=== PATIENT | male | born 1945 | race Caucasian/White ===

== ENCOUNTER 2018-09-07 07:14 | Inpatient (IN) | payer MEDICARE ==
[2018-09-07] VITALS (20 sets, daily range): BP systolic 129–144; BP diastolic 69–87; BMI 28.5
--- NOTE | 2018-09-07 07:33 | NUR ---
PT INTUBATED BY DR. VILLEDA WITH RT X 2 ET RN X 3 AT BEDSIDE. 7.5 ETT TUBE 24 AT LIP. BREATH SOUNDS AUSCULTATED ON R SIDE. UPPER L LUNG SOUNDS AUSCULTATED. L BASE NOT ABLE TO AUSCULTATE.
[2018-09-07 07:51] LABS: BASOPHILS 0.1 % (0-2); EOSINOPHILS 0.5 % (0-7); HEMATOCRIT 37.5 % (42.0-54.0); HEMOGLOBIN 12.4 g/dL (13.5-17.5); IMMATURE GRANULOCYTES 0.2 % (0-5); LYMPHOCYTES 8.2 % (15-50); MCH 30.8 pg (26.0-34.0); MCHC 33.1 g/dL (31.0-37.0); MCV 93.1 fL (80.0-100.0); MONOCYTES 4.9 % (2-11); NEUTROPHILS 86.1 % (40-80); PLATELET COUNT 201 10x3/uL (130-400); RBC 4.03 10x6/uL (4.20-6.10); WBC 10.5 10x3/uL (4.8-10.8)
[2018-09-07 08:15] LABS: INR 1.38 (0.85-1.17); PROTIME 16.4 SECONDS (11.6-15.0)
[2018-09-07 08:18] LABS: ALBUMIN 3.8 g/dL (3.4-5.0); ALKALINE PHOSPHATASE 37 U/L (46-116); ALT (SGPT) 30 U/L (10-68); BILIRUBIN - TOTAL 2.22 mg/dL (0.2-1.3); CALC OSMOLALITY 298 mosm/kg (275-300); CALCIUM 8.6 mg/dL (8.5-10.1); CARBON DIOXIDE 27.6 mmol/L (21.0-32.0); CHLORIDE - SERUM 108 mmol/L (98-107); CREATININE - SERUM 1.5 mg/dL (0.6-1.3); GLUCOSE 166 mg/dL (74-106); POTASSIUM - SERUM 3.9 mmol/L (3.5-5.1); PROTEIN - SERUM 7.1 g/dL (6.4-8.2); SODIUM 145 mmol/L (136-145); UREA NITROGEN 29 mg/dL (7-18); eGFR NON AFRICAN AMERICAN 49 mL/min (90-120)
[2018-09-07 08:25] LABS: CKMB 1.9 U/L (0.0-3.6); CREATINE KINASE 126 UL (21-232); MAGNESIUM - SERUM 2.1 mg/dL (1.8-2.4); THYROID STIMULATING HORMONE 1.49 uIU/mL (0.36-3.74); TROPONIN-I 0.023 ng/mL (0.000-0.060)
--- NOTE | 2018-09-07 12:10 | NUR ---
PT ARRIVED ON UNIT VIA STRETCHER, PT ON VENT, HOOKED TO MONITORS, OGT TO LIWS WITH GREEN DRAINAGE NOTED, ALL PPP, VSS, CALL LIGHT IN REACH
[2018-09-07] MEDS ORDERED: COREG25 MG PO (12:56)
[2018-09-07] MEDS ORDERED: CATAPRES0.1 MG PO (12:56)
[2018-09-07] MEDS ORDERED: ENTRESTO 49 MG1 EACH PO (12:57)
[2018-09-07] MEDS ORDERED: HYDRALAZINE HCL50 MG PO (12:58)
[2018-09-07] MEDS ORDERED: LASIX80 MG PO (12:59)
[2018-09-07] MEDS ORDERED: K-TAB10 MEQ PO (12:59)
[2018-09-07] MEDS ORDERED: ELIQUIS5 MG PO (13:00)
[2018-09-07 14:16] LABS: % SATURATION 28 % (15-55); IRON 86 ug/dl (35-150); TOTAL IRON BIND CAPACITY 302 ug/dl (260-445); UNSAT IRON BIND CAPACITY 216 ug/dl (150-375)
--- NOTE | 2018-09-07 15:00 | NUR ---
REASSESSMENT COMPLETE, NO CHANGES NOTED, WILL CON'T TO MONITOR
[2018-09-07 16:26] LABS: APPEARANCE CLEAR (CLEAR); BILIRUBIN NEGATIVE (NEGATIVE); COLOR YELLOW (YELLOW); GLUCOSE NEGATIVE (NEGATIVE); KETONE NEGATIVE (NEGATIVE); NITRITE NEGATIVE (NEGATIVE); PROTEIN NEGATIVE (NEGATIVE); UROBILINOGEN NORMAL (NORMAL)
[2018-09-07 16:34] LABS: WHITE CELLS - URINE 0-5 /hpf (0-5)
--- NOTE | 2018-09-07 17:00 | NUR ---
DR. GORDON AT BEDSIDE, NEW ORDERS RECIEVED,
--- NOTE | 2018-09-07 19:00 | NUR ---
SHIFT ASSESSMENT COMPLETE. PT SEDATED ON VENT. R PUPIL 2 MM, SLUGGISH REACTION TO LIGHT. L PUPIL 1 MM, FIXED. ETT/OGT SECURED. ETT SIZE 7.5, 25 CM LIP. VENT SETTINGS: A/C RATE 22, TIDAL VOLUME 440, FIO2 60%, PEEP 5.0, O2 SAT 96%. OGT LIS, GREEN/BROWN BILE NOTED IN COLLECTION CHAMBER. S1S2 AUDIBLE, HR 70 BPM, PACEMAKER NOTED L UPPER CHEST, NSR SHOWING ON MONITOR. CRACKLES HEARD BILAT THROUGHOUT ALL LOBES. ABD FLAT AND SOFT, BS ACTIVE X4. L AC PIV S/L. R AC PIV INFUSING NS @ 125 ML/HR AND PROPOFOL @ 40 MCG/KG/MIN. HE IS SEDATED AND DOES NOT RESPOND TO SPEECH. HE DOES MOVE HIS R ARM AT TIMES, L SIDE IS FLACCID. RADIAL AND PEDAL PULSES PALP. PINEDA CATH INTACT DRAINING CONCENTRATED URINE. SCDS ON AND FUNCTIONING. VSS. ORAL CARE PROVIDED VIA RT. PT'S HEAD IS STRAIGHT. WILL ONLY REPOSITION SLIGHTLY PER DR. GORDON'S NOTE. SOFT WRIST RESTRAINTS IN PLACE, SKIN WNL. WILL CONT CLOSE MONITORING IN ICU.
--- NOTE | 2018-09-07 21:00 | NUR ---
ORAL CARE PROVIDED. REPOSITIONED FOR COMFORT. NO CHANGES IN NEURO ASSESSMENT. PT REMAINS SEDATED ON VENT. VSS.
--- NOTE | 2018-09-07 21:10 | NUR ---
DECREASED IVF PER DR. GORDON'S NOTE.
--- NOTE | 2018-09-07 23:00 | NUR ---
REASSESSMENT COMPLETE. NO CHANGES IN PT CONDITION. SLIGHTLY REPOSITIONED PT, HEAD REAMINS STRAIGHT. R PUPIL 2 MM SLUGGISH, L 1 AND FIXED. NO SIGNS OF MOVEMENT FROM HIS L SIDE. VSS. WILL CONT WITH POC.
[2018-09-08] VITALS (26 sets, daily range): BP systolic 126–146; BP diastolic 74–91; BMI 28.4
--- NOTE | 2018-09-08 01:00 | NUR ---
ORAL CARE PROVIDED VIA RT. PROPOFOL TUBING CHANGED.
--- NOTE | 2018-09-08 03:00 | NUR ---
REASSESSMENT COMPLETE. NO CHANGES IN PT CONDITION. SLIGHTLY REPOSITIONED, HEAD REMAINS STRAIGHT. ORAL CARE PROVIDED. VSS. WILL CONT WITH POC.
[2018-09-08 04:29] LABS: BASOPHILS 0 % (0-2); EOSINOPHILS 0.1 % (0-7); HEMATOCRIT 36.5 % (42.0-54.0); HEMOGLOBIN 11.9 g/dL (13.5-17.5); IMMATURE GRANULOCYTES 0.2 % (0-5); LYMPHOCYTES 10.3 % (15-50); MCH 30.7 pg (26.0-34.0); MCHC 32.6 g/dL (31.0-37.0); MCV 94.3 fL (80.0-100.0); MEAN PLATELET VOLUME 10.4 fL (7.4-10.4); MONOCYTES 12.4 % (2-11); PLATELET COUNT 193 10x3/uL (130-400); RBC 3.87 10x6/uL (4.20-6.10); RDW 14.6 % (11.5-14.5); WBC 9.1 10x3/uL (4.8-10.8)
[2018-09-08 04:59] LABS: ALBUMIN 3.3 g/dL (3.4-5.0); ANION GAP 15.2 mmol/L (8-16); BILIRUBIN - TOTAL 2.24 mg/dL (0.2-1.3); CALCIUM 8.4 mg/dL (8.5-10.1); CARBON DIOXIDE 25.9 mmol/L (21.0-32.0); CREATININE - SERUM 1.4 mg/dL (0.6-1.3); POTASSIUM - SERUM 3.1 mmol/L (3.5-5.1); PROTEIN - SERUM 6.6 g/dL (6.4-8.2)
--- NOTE | 2018-09-08 05:00 | NUR ---
HR INCREASED FROM 70 TO 91 BPM, SINUS RHYTHM ON MONITOR. WILL CONT CLOSE OBSERVATION IN ICU. ORAL CARE PROVIDED. VSS.
--- NOTE | 2018-09-08 06:00 | NUR ---
LABS REVIEWED. REPLACING K NOW, INFUSING @ 80 ML/HR.
[2018-09-08 13:12] LABS: FOLATE (FOLIC ACID) - SERUM 19.6 ng/mL (>3.0)
--- NOTE | 2018-09-08 13:50 | NUR ---
0700 ON VENT AT 60% 02 ASSESSMENT COMPLETE
--- NOTE | 2018-09-08 13:51 | NUR ---
0900 MINIMALLY REPOSITIONED IN BED PER MD INSTRUCTIONS WITH HOB AT 30 DEGREES ORAL CARE PROVIDED
--- NOTE | 2018-09-08 18:28 | MORECARE ---
CASE MANAGEMENT DISCHARGE SUMMARY PATIENT: ALEXANDER ALBRECHT UNIT: [id number] ADM DATE: 09/07/18 AGE: 73 : 46 SEX: M ROOM/BED: D.2313 AUTHOR: NEGRA ELENA PHYSICIAN: REFERRING PHYSICIAN: TONNY LAURENT MD DATE OF SERVICE: 09/08/18 Discharge Plan Patient Name: ALEXANDER ALBRECHT Facility: [facility]:[place] : 1945 Planned Disposition: Anticipated Discharge Date: Discharge Date: Expected LOS: Initial Reviewer: [email or web address] Initial Review Date: 09/07/2018 Generated: 09/08/18 7:28 pm Comments DCP- Discharge Planning Updated by [email or web address]: Margie Freeman on 09/08/18 4:[address] PATIENT IS CURRENTLY ON VENT AND NO FAMILY AVAILABLE FOR INTAKE ASSESSMENT Patient Name: ALEXANDER ALBRECHT Page [id number] at 1828 All edits/amendments must be made on the electronic document DICTATION DATE: 09/08/181826 MANAGER AVIATION: JOE 09/08/181826 RPT#: [id number] DC DATE: STATUS: ADM IN [facility] [address] [place] [address] END OF REPORT
--- NOTE | 2018-09-08 19:00 | NUR ---
SHIFT ASSESSMENT COMPLETE. PT SEDATED ON VENT. ETT/OGT SECURED, ETT SIZE 7.5, 27 LIP LINE RIGHT. VENT SETTINGS: A/C RATE OF 22, TIDAL VOLUME 450, FIO2 60%, PEEP 5.0, O2 SAT 97%. OGT LIWS, NO BILE NOTED. PUPILS 2 MM, SLUGGISH REACTION TO LIGHT. HE IS ABLE TO LOCALIZE PAIN. ORAL CARE PROVIDED. S1S2 AUDIBLE, HR 70 BPM, NSR SHOWING ON MONITOR. CRACKLES HEARD BILAT THROUGHOUT ALL LOBES. ABD SOFT AND NONTENDER TO TOUCH, HYPOACTIVE BS X4. PINEDA CATH INTACT DRAINING CONCENTRATED URINE WITH A SCANT AMOUNT OF BLOOD NOTED IN THE TUBING. L AC PIV INFUSING PROPOFOL @ 40 MCG/KG/SD. R AC PIV INFUSING NS @ KVO. RADIAL AND PEDAL PULSES PALP. SCDS ON AND FUNCTIONING. HEEL PROTECTORS ON. TIGHT PARAMETERS SET ON ICU MONITORS. WILL CONT WITH POC.
--- NOTE | 2018-09-08 19:24 | NUR ---
1100 CONTINUED Q 1 HOUR NEURO CHECKS AND VENT SETTINGS
--- NOTE | 2018-09-08 19:26 | NUR ---
1300 DR SANCHEZ AT BEDSIDE ASSESSING PATIENT. WILL CONTINUE TO MONITOR AND MAINTAIN STABILITY FOR SEVERAL DAYS
--- NOTE | 2018-09-08 19:28 | NUR ---
1500 CHILDREN OF HIS BEST FRIEND VISITING EMOTIONAL SUPPORT PROVIDED
--- NOTE | 2018-09-08 19:29 | NUR ---
1700 NO CHANGES TO CARE
--- NOTE | 2018-09-08 21:00 | NUR ---
REPOSITIONED FOR COMFORT, ORAL CARE PROVIDED. VSS. NO CHANGES IN PT CONDITION. NEURO CHECKS Q1H. NO FAMILY AT VISITATION. HOB ELEVATED 30 DEGREES, HEAD IS STRAIGHT. WILL CONT WITH POC.
--- NOTE | 2018-09-08 22:29 | NUR ---
K 3.5, ELECTROLYTE PROTOCOL INITATED.
--- NOTE | 2018-09-08 22:31 | NUR ---
TYLENOL SUPP ADMIN, TEMP 101.1. WILL CONT TO MONITOR CLOSELY.
--- NOTE | 2018-09-08 23:00 | NUR ---
REASSESSMENT COMPLETE. PT'S TEMP 99.9. S1S2 AUDIBLE, HR 70 NSR SHOWING ON MONITOR. PACEMAKER IN L UPPER CHEST. CRACKLES HEARD BILAT THROUGHOUT ALL LOBES. NO CHANGES IN PT'S NEURO ASSESSMENT. HOB ELEVATED 30 DEGREES. ORAL CARE PROVIDED. WILL CONT WITH POC.
--- NOTE | 2018-09-08 23:49 | NUR ---
PROPOFOL TUBING CHANGED, SWAB CAPPED, LABELED.
[2018-09-09] VITALS (24 sets, daily range): BP systolic 130–153; BP diastolic 81–97
--- NOTE | 2018-09-09 01:00 | NUR ---
MINIMALLY REPOSITIONED. PINEDA CARE PROVIDED. ORAL CARE PROVIDED. VSS. WILL CONT WITH POC.
--- NOTE | 2018-09-09 03:00 | NUR ---
REASSESSMENT COMPLETE. PT IS IN COUGHING SPELL, CLEAR/WHITE SECRETIONS SUCTIONED. PT IS NOW CALM AND SEDATED. NO NEURO CHANGES NOTED. EYES ARE EDEMATOUS, PUPILS 2 MM, SLUGGISH REACTION TO LIGHT. TEMP 99.2, FAN ON. WILL CONT CLOSE MONITORING IN ICU.
[2018-09-09 04:13] LABS: BASOPHILS 0.1 % (0-2); EOSINOPHILS 0 % (0-7); HEMATOCRIT 39.6 % (42.0-54.0); HEMOGLOBIN 12.9 g/dL (13.5-17.5); IMMATURE GRANULOCYTES 0.2 % (0-5); LYMPHOCYTES 11.2 % (15-50); MCH 31.3 pg (26.0-34.0); MCHC 32.6 g/dL (31.0-37.0); MCV 96.1 fL (80.0-100.0); MEAN PLATELET VOLUME 10.4 fL (7.4-10.4); MONOCYTES 17.3 % (2-11); NEUTROPHILS 71.2 % (40-80); PLATELET COUNT 162 10x3/uL (130-400); RBC 4.12 10x6/uL (4.20-6.10); RDW 14.7 % (11.5-14.5)
[2018-09-09 04:17] LABS: WBC 13.9 10x3/uL (4.8-10.8)
[2018-09-09 04:27] LABS: CALCIUM 8.6 mg/dL (8.5-10.1); CARBON DIOXIDE 27.1 mmol/L (21.0-32.0); CREATININE - SERUM 1.4 mg/dL (0.6-1.3); MAGNESIUM - SERUM 2.3 mg/dL (1.8-2.4); PHOSPHOROUS 3.8 mg/dL (2.5-4.9)
[2018-09-09 04:29] LABS: POTASSIUM - SERUM 4.1 mmol/L (3.5-5.1)
--- NOTE | 2018-09-09 05:00 | NUR ---
CHG BATH GIVEN. ORAL CARE AND PINEDA CARE PROVIDED. PARTIAL LINEN CHANGE PROVIDED WITH MINIMAL MOVEMENT. VSS. SEDATED ON VENT, PT TOLERATED WELL. WILL CONT WITH POC.
--- NOTE | 2018-09-09 15:24 | NUR ---
NUTRITION F/U RECEIVED CONSULT TO START TUBE FEEDS. ORDERED PULMOCARE WITH GOAL RATE 35 CC/HR. 50 CC H2O FLUSH Q 4 HOURS. DIPRIVAN CURRENTLY @ ~ 20 CC PER HOUR PROVIDING 530 KCAL/DAY. WILL REQUIRE INCREASED TUBE FEED RATE AFTER DIPRIVAN RATE DECREASES. RD FOLLOWING
--- NOTE | 2018-09-09 18:00 | MORECARE ---
CASE MANAGEMENT DISCHARGE SUMMARY PATIENT: ALEXANDER ALBRECHT UNIT: [id number] ADM DATE: 09/07/18 AGE: 73 : 46 SEX: M ROOM/BED: D.2313 AUTHOR: NEGRA ELENA PHYSICIAN: REFERRING PHYSICIAN: TONNY LAURENT MD DATE OF SERVICE: 09/09/18 Discharge Plan Patient Name: ALEXANDER ALBRECHT Facility: [facility]:[place] : 1945 Planned Disposition: Anticipated Discharge Date: Discharge Date: Expected LOS: Initial Reviewer: [id number] Initial Review Date: 09/07/2018 Generated: 09/09/18 7:00 pm Comments DCP- Discharge Planning Updated by [email or web address]: Margie Freeman on 09/09/18 4:[address] PATIENT IS CURRENTLY ON VENT AND NO FAMILY AVAILABLE FOR INTAKE ASSESSMENT. CM HAS NOT BEEN ABLE TO GET INTOUCH WITH CONTACTS. CM WILL CONTINUE TO FOLLOW AND ASSIST NEEDED WITH DISCHARGE PLANNING / NEEDS. DCP- Discharge Planning Updated by [email or web address]: Margie Freeman on 09/08/18 4:[address] PATIENT IS CURRENTLY ON VENT AND NO FAMILY AVAILABLE FOR INTAKE ASSESSMENT Last DP export: 09/08/18 5:28 pm Patient Name: ALXEANDER ALBRECHT Page [id number] at 1800 All edits/amendments must be made on the electronic document DICTATION DATE: 09/09/18 1800 COMPUTER HARDWARE ENGINEER: JOE 09/09/18 1800 RPT#: [id number] DC DATE: STATUS: ADM IN [facility] [address] [place] [address] END OF REPORT
--- NOTE | 2018-09-09 19:00 | NUR ---
RECEIVED PATIENT FROM DAY SHIFT RN, INTUBATED AND SEDATED. NO PURPOSEFUL MOVEMENT NOTED. SEE FLOWSHEET FOR VENT SETTINGS. BEDSIDE INSTRUCTOR TRAINER CANINE SERVICE READING SR-PACED @ 70BPM. SLIGHTLY FEBRILE, TEMP 100.2, FAN TURNED ON. LS COARSE BILAT. RESPIRATIONS EVEN AND UNLABORED. HYPO BS X 4. OGT WITH PULMOCARE AT 15ML/HR , WILL FOLLOW ORDERS FOR TITRATION. PINEDA TO GRAVITY DRAINING BLOODY URIINE, WILL MONITOR OUTPUT. SKIN W/D/I. FAMILY NOT PRESENT AT THIS TIME. WILL MONITOR CLOSELY THROUGH OUT THE NIGHT.
--- NOTE | 2018-09-09 20:06 | NUR ---
0900 MINIMALLY REPOSITIONED IN BED JHR PACING AT 70
--- NOTE | 2018-09-09 20:06 | NUR ---
0700 ORAL CARE PROVIDED ASSESSMENT COMPLETE
--- NOTE | 2018-09-09 20:07 | NUR ---
1300 OGT TO LIS
--- NOTE | 2018-09-09 20:07 | NUR ---
1100 NO CHANGES TO VENT SETTING WHEN DR GORDON MADE ROUNDS
--- NOTE | 2018-09-09 20:08 | NUR ---
1500 STARTED PULMOCARE AT 20ML/ PER HOUR TO OGT
--- NOTE | 2018-09-09 20:11 | NUR ---
1700 RERPOSITIONED IN BED ORAL CARE COMPLETE. NO DISTRESS NOTED
--- NOTE | 2018-09-09 21:00 | NUR ---
PM MEDS GIVEN PER MD ORDERS, SEE MAR.
--- NOTE | 2018-09-09 23:00 | NUR ---
REASSESSMENT COMPLETED, SEE FLOWSHEET. VSS. WILL CTM.
[2018-09-10] VITALS (23 sets, daily range): BP systolic 145–161; BP diastolic 77–109
--- NOTE | 2018-09-10 01:00 | NUR ---
NO ACUTE CHANGES NOTED. VSS. IV TUBING CHANGED PER PROTOCOL. RESIDUALS CHECKED, 20ML. WILL CTM.
--- NOTE | 2018-09-10 03:00 | NUR ---
REASSESSMENT COMPLETED, SEE FLOWSHEET. VSS. LEFT ARM SWOLLEN, IV STOPPED AND PIV CHECKED, FLUSHED, LEAKING NOTED. IV DC'D. NO OTHER ACUTE CHANGES NOTED. WILL CTM.
--- NOTE | 2018-09-10 07:00 | NUR ---
REC'D SEDTED W/PROPOFOL ON VENT, VSS.
--- NOTE | 2018-09-10 08:00 | NUR ---
ASSESSED, PROPOFOL OFF. UNRESPONSIVE EXCEPT COUGH/GAG REFLEX INTACT.
--- NOTE | 2018-09-10 10:00 | NUR ---
REMAINS UNRESPONSVIE OFF PROPOFOL. REPOSITIONED.
--- NOTE | 2018-09-10 11:30 | NUR ---
REASSESSED. AFVSS, REPOSITIONED
--- NOTE | 2018-09-10 13:35 | NUR ---
DR SANCHEZ IN- NO NEW ORDERS
--- NOTE | 2018-09-10 14:54 | NUR ---
REASSESSED, REPOSITIONED, AFVSS.
--- NOTE | 2018-09-10 17:30 | NUR ---
REPOSITIONED, NEURO UNCHANGED.
--- NOTE | 2018-09-10 19:00 | NUR ---
REPORT RECIEVED, SHIFT ASSESSMENT COMPLETE, PLEASE SEE FLOW SHEETS FOR DETAILS. ORAL CARE AND TURNING PROVIDED. RESIDUAL CHECK WITH NONE OUT. INCREASED TF RATE TO 35 ML/HR. PINEDA CARE PROVIDED. VSS ATT. BED LOW AND LOCKED. WILL CONTINUE PLAN OF CARE.
--- NOTE | 2018-09-10 20:58 | NUR ---
ORAL CARE AND TURNING PROVIDED. VSS. BED LOW AND LOCKED. NO S&S DISTRESS TO NOTE. WILL CONTINUE PLAN OF CARE.
--- NOTE | 2018-09-10 23:00 | NUR ---
REASSESSMENT COMPLETE, PLEASE SEE FLOW SHEETS FOR DETAILS. NO ACUTE CHANGES TO NOTE. ORAL CARE AND TURNING PROVIDED. VSS, BED LOW AND LOCKED. WILL CONTINUE PLAN OF CARE.
[2018-09-11] VITALS (24 sets, daily range): BP systolic 134–160; BP diastolic 65–100
--- NOTE | 2018-09-11 00:55 | NUR ---
ORAL CARE AND TURNING PROVIDED. VSS, BED LOW AND LOCKED. WILL CONTINUE PLAN OF CARE.
--- NOTE | 2018-09-11 04:16 | NUR ---
FULL CHLORHEXADINE BED BATH AND LINEN CHANGE PROVIDED. PINEDA CARE PROVIDED. TOLERATED WELL. ORAL CARE AND TURNING PROVIDED. VSS, WILL CONTINUE PLAN OF CARE.
--- NOTE | 2018-09-11 06:00 | NUR ---
ORAL CARE AND TURNING PROVIDED. VSS, BED LOW AND LOCKED. WILL CONTINUE PLAN OF CARE.
--- NOTE | 2018-09-11 07:45 | NUR ---
ASSESSED, OPENS EYES WHEN REPOSITIONED/SXD, WD RUE AND WILL MOVE RT ARM AGAINST GRAVITY WHEN NAILBED PRESSURE APPLIED TO LEFT HAND NAIL BED.
--- NOTE | 2018-09-11 08:10 | NUR ---
TYLENOL SUPP FOR TEMP 101.1 AX
--- NOTE | 2018-09-11 10:30 | NUR ---
VISITOR-TRAN PARRY- IN AND UPDATED. HE HAS BEEN TALKING TO PT'S SISTER, MICKIE, IN [place]. REQUESTED CONTACT INFO FOR HER.
--- NOTE | 2018-09-11 11:30 | NUR ---
.DR SANCHEZ SPEAKS W/ TRAN AT LENGTH RE: PLAN OF CARE.
--- NOTE | 2018-09-11 11:45 | NUR ---
REASSESSED W/O CHANGES, TYLENOL FOR ELEVATED TEMP.
--- NOTE | 2018-09-11 14:00 | NUR ---
REPOSITIONED, VSS, NEURO UNCHANGED.
--- NOTE | 2018-09-11 15:30 | NUR ---
REASSESSED, NEURO UNCHANGED.
--- NOTE | 2018-09-11 16:00 | NUR ---
NOTE ST SEGMENT ELEVATIO. EKG ORDERED.
--- NOTE | 2018-09-11 18:00 | NUR ---
REPOSITIONED, NEURO UNCHANGED.
--- NOTE | 2018-09-11 19:48 | NUR ---
PT RECEIVED ON VENT, NOT SEDATED. PT RESPONSIVE TO NAILBED PRESSURE TO BILATERAL HAND AND FEET. EYES DO NOT OPEN. VSS. WILL CONTINUE TO OBSERVE.
--- NOTE | 2018-09-11 21:03 | NUR ---
PT CONTINUES VENT, VSS. SPONTANEOUS MOVEMENT TO RIGHT ARM NOTED. WILL CONTINUE TO OBSERVE.
--- NOTE | 2018-09-11 22:23 | NUR ---
PT TEMP 101.6 WITH PRN TYLENOL GIVEN VIA OGT. WILL CONTINUE TO OBSERVE
--- NOTE | 2018-09-11 23:19 | NUR ---
REASSESSMENT COMPLETED, SEE FLOW SHEET. VSS. CONTINUES VENT WITHOUT SEDATION. WILL CONTINUE TO OBSERVE.
[2018-09-12] VITALS (24 sets, daily range): BP systolic 149–166; BP diastolic 75–97
--- NOTE | 2018-09-12 01:23 | NUR ---
PT CONTINUES VENT WITHOUT SEDATION. PT HAS SPONTANEOUS MOVENENT TO RIGHT ARM WITH OCCASIONAL MOVEMENT UP TO VENT TUBING. WILL CONTINUE TO OBSERVE.
--- NOTE | 2018-09-12 03:37 | NUR ---
REASSESSMENT COMPLETED, SEE FLOW SHEET. VSS. WILL CONTINUE TO OBSERVE.
[2018-09-12 06:36] LABS: BASOPHILS 0.2 % (0-2); EOSINOPHILS 3.1 % (0-7); IMMATURE GRANULOCYTES 0.2 % (0-5); LYMPHOCYTES 9.5 % (15-50); MCH 30.6 pg (26.0-34.0); MCHC 32.4 g/dL (31.0-37.0); MCV 94.7 fL (80.0-100.0); MEAN PLATELET VOLUME 10.1 fL (7.4-10.4); PLATELET COUNT 131 10x3/uL (130-400); RBC 3.59 10x6/uL (4.20-6.10); RDW 14.3 % (11.5-14.5); WBC 6.5 10x3/uL (4.8-10.8)
--- NOTE | 2018-09-12 06:51 | NUR ---
PT RECEIVED BATH WITH COMPLETE LINEN CHANGE. HEAD KEPT MIDLINE. PT TOLERATED WELL.
[2018-09-12 07:04] LABS: CALC OSMOLALITY 305 mosm/kg (275-300); CALCIUM 7.8 mg/dL (8.5-10.1); CARBON DIOXIDE 28.1 mmol/L (21.0-32.0); CHLORIDE - SERUM 115 mmol/L (98-107); GLUCOSE 140 mg/dL (74-106); POTASSIUM - SERUM 3.6 mmol/L (3.5-5.1); SODIUM 150 mmol/L (136-145); UREA NITROGEN 28 mg/dL (7-18); eGFR NON AFRICAN AMERICAN 78 mL/min (90-120)
--- NOTE | 2018-09-12 10:50 | NUR ---
Nutrition Follow Up: Pt continues on vent. Noted Diprivan off at this time. Pt is tolerating TF of Pulmocare @ 35 ml/hr with 50 ml H2O Q4H. I>O Wt stable No BM since admit (x 5 days) Labs reviewed - Na elevated Meds noted When okay with , rec increasing TF 10 ml every 6-8 hours as tolerated to goal rate of 50 ml/hr with 35 ml/hr H2O flushes. RD following.
--- NOTE | 2018-09-12 15:33 | NUR ---
0700 PATIENT REMAINS UNRESPONSIVE NOT ON SEDATION ASSESSMENT COMPLETE
--- NOTE | 2018-09-12 15:35 | NUR ---
0900 TOLERATING TUBE FEEDING OF PULMOCARE AT 35ML/HR
--- NOTE | 2018-09-12 16:26 | MORECARE ---
CASE MANAGEMENT DISCHARGE SUMMARY PATIENT: ALEXANDER ALBRECHT UNIT: [id number] ADM DATE: 09/07/18 AGE: 73 : 46 SEX: M ROOM/BED: D.2313 AUTHOR: NEGRA ELENA PHYSICIAN: REFERRING PHYSICIAN: TONNY LAURENT MD DATE OF SERVICE: 09/12/18 Discharge Plan Patient Name: ALEXANDER ALBRECHT Facility: [facility]:[place] : 1945 Planned Disposition: Anticipated Discharge Date: Discharge Date: Expected LOS: Initial Reviewer: [id number] Initial Review Date: 09/07/2018 Generated: 09/12/18 5:26 pm Comments DCP- Discharge Planning Updated by [id number]: Margie Freeman on 09/12/18 3:[address] CM spoke with Cricket Arely (identifies himself as a brother) states that he and the patients sister (Danielle) having been talking through [employer]. He states he doesn't have her phone number. They are requesting terminal extubation. CM notified Dr. Ramey of family request and Dr. Ramey came and spoke with Robert. Harley states he is POA but there isn't any paperwork on chart. CM will continue to follow and assist as needed with discharge planning / needs. DCP- Discharge Planning Updated by [email or web address]: Margie Freeman on 09/09/18 4:[address] PATIENT IS CURRENTLY ON VENT AND NO FAMILY AVAILABLE FOR INTAKE ASSESSMENT. CM HAS NOT BEEN ABLE TO GET INTOUCH WITH CONTACTS. CM WILL CONTINUE TO FOLLOW AND ASSIST NEEDED WITH DISCHARGE PLANNING / NEEDS. DCP- Discharge Planning Updated by [id number]: Margie Freeman on 09/08/18 4:[address] PATIENT IS CURRENTLY ON VENT AND NO FAMILY AVAILABLE FOR INTAKE ASSESSMENT Last DP export: 09/09/18 5:00 p Patient Name: ALEXANDER ALBRECHT Page [id number] at 1626 All edits/amendments must be made on the electronic document DICTATION DATE: 09/12/18 1627 CLUB CONCIERGE: JOE 09/12/18 1626 RPT#: [id number] [place] DATE: STATUS: ADM IN [facility] [address] [place] [address] END OF REPORT
--- NOTE | 2018-09-12 16:33 | MORECARE ---
CASE MANAGEMENT DISCHARGE SUMMARY PATIENT: ALEXANDER ALBRECHT UNIT: [id number] ADM DATE: 09/07/18 AGE: 73 : 46 SEX: M ROOM/BED: D.2313 AUTHOR: NEGRA ELENA PHYSICIAN: REFERRING PHYSICIAN: TONNY LAURENT MD DATE OF SERVICE: 09/12/18 Discharge Plan Patient Name: ALEXANDER ALBRECHT Facility: [facility]:[place] : 1945 Planned Disposition: Anticipated Discharge Date: Discharge Date: Expected LOS: Initial Reviewer: [email or web address] Initial Review Date: 09/07/2018 Generated: 09/12/18 5:33 pm Comments DCP- Discharge Planning Updated by [id number]: Margie Freeman on 09/12/18 3:[address] CM spoke with Cricket Arely (identifies himself as a brother) states that he and the patients sister (Danielle) having been talking through [employer] He states he doesn't have her phone number. They are requesting terminal extubation. CM notified Dr. Ramey of family request and Dr. Ramey came and spoke with Robert. Harley states he is POA but there isn't any paperwork on chart. CM will continue to follow and assist as needed with discharge planning / needs. DCP- Discharge Planning Updated by [id number]: Margie Freeman on 09/09/18 4:[address] PATIENT IS CURRENTLY ON VENT AND NO FAMILY AVAILABLE FOR INTAKE ASSESSMENT. CM HAS NOT BEEN ABLE TO GET INTOUCH WITH CONTACTS. CM WILL CONTINUE TO FOLLOW AND ASSIST NEEDED WITH DISCHARGE PLANNING / NEEDS. DCP- Discharge Planning Updated by [id number]: Margie Freeman on 09/08/18 4:[address] PATIENT IS CURRENTLY ON VENT AND NO FAMILY AVAILABLE FOR INTAKE ASSESSMENT Last DP export: 09/12/18 3:26 p Patient Name: ALEXANDER ALBRECHT Page [id number] at 1633 All edits/amendments must be made on the electronic document DICTATION DATE: 09/12/18 1633 SENIOR BOILER OPERATOR: JOE 09/12/18 1633 RPT#: [id number] [place] DATE: STATUS: ADM IN [facility] [address] [place] [address] END OF REPORT
--- NOTE | 2018-09-12 18:50 | NUR ---
1100 MINIMALLY REPOSITION INSTRUCTED BY DR SANCHEZ WITH HOB 30 DEGREES 1300 MR AUBREY PRESENT ASKING FOR APPLIANCES SAMPLE MAKER TO PROVIDE LAST RITES TO PATIENT 1500 LAST RITES AND SPIRITUAL SUPPORT GIVEN 1600 DR [place] WROTE ORDERS FOR TERMINAL EXTUBATION FAMILY NOTIFIED AND AGREEDED 1700 DR SINGLETARY NOTIFIIED AND AGREEDED TO EXTUBATION
--- NOTE | 2018-09-12 18:55 | NUR ---
1700 ATTEMPT UNSUCCESSFUL TO NOTIFY DR SANCHEZ
--- NOTE | 2018-09-12 18:56 | NUR ---
4288 AUBREY NOT SURE OF HOME OF CHOICE SAID HE WILL GO ONLINE TO LOCATE CHOSEN HOME TODAY
--- NOTE | 2018-09-12 19:42 | NUR ---
PT RECEIVED ON VENT UNSEDATED AND NONRESPONSIVE. ASSESSMENT COMPLETED, SEE FLOW SHEET. WILL CONTINUE TO OBSERVE.
--- NOTE | 2018-09-12 21:44 | NUR ---
CALL TRAN [facility] TO FOLLOW UP ON HOME ARRANGEMENTS BEFORE IT GOT LATE. NO ARRANGEMENTS HAVE NOT BEEN MADE AT THIS TIME.
[2018-09-13] VITALS (11 sets, daily range): BP systolic 134–173; BP diastolic 70–100
--- NOTE | 2018-09-13 00:41 | NUR ---
PT CONTINUES VENT WITHOUT SEDATION. DOES NOT RESPOND TO STIMULI. REASSESSMENT COMPLETED, SEE FLOW SHEET. WILL CONTINUE TO OBSERVE.
--- NOTE | 2018-09-13 05:23 | NUR ---
PT REMAINS OF VENT WITHOUT SEDATION. VSS. WILL CONTINUE TO OBSERVE.
[2018-09-13 05:26] LABS: BASOPHILS 0.3 % (0-2); CALC OSMOLALITY 307 mosm/kg (275-300); CALCIUM 8.1 mg/dL (8.5-10.1); GLUCOSE 137 mg/dL (74-106); HEMOGLOBIN 10.9 g/dL (13.5-17.5); IMMATURE GRANULOCYTES 0.1 % (0-5); LYMPHOCYTES 10.9 % (15-50); MCH 30.5 pg (26.0-34.0); MCHC 32.1 g/dL (31.0-37.0); MCV 95.2 fL (80.0-100.0); MEAN PLATELET VOLUME 10.7 fL (7.4-10.4); MONOCYTES 12.6 % (2-11); NEUTROPHILS 73.1 % (40-80); PLATELET COUNT 142 10x3/uL (130-400); POTASSIUM - SERUM 3.6 mmol/L (3.5-5.1); RBC 3.57 10x6/uL (4.20-6.10); RDW 14.4 % (11.5-14.5); SODIUM 151 mmol/L (136-145); UREA NITROGEN 29 mg/dL (7-18); WBC 7.3 10x3/uL (4.8-10.8); eGFR NON AFRICAN AMERICAN 78 mL/min (90-120)
[2018-09-13 05:35] LABS: CHLORIDE - SERUM 117 mmol/L (98-107)
--- NOTE | 2018-09-13 09:15 | NUR ---
PT TERMINALLY EXTUBATED AT THIS TIME, FAMILY AT BEDSIDE,
--- NOTE | 2018-09-13 09:43 | NUR ---
0700 CONTINUES ON VENT UNTIL FRIEND FINDS HOME. NIGHT RN REPORTED SPEAKING WITH PATIENTS FRIEND AROUND 10PM SAYING THAT HE HASNT HAD TIME TO CONTACT HOME YET.
--- NOTE | 2018-09-13 10:02 | NUR ---
0800 FAMILY MEMBER AT BEDSIDE ASKING WHEN HE WILL BE TERMINALLY EXTOBATED. DUSTY HELMS PROVIDED MR PARRY HANDOUT ON HOMES AND A PHONE THAT HE MAY USE. EMOTIONAL SUPPORT GIVEN
--- NOTE | 2018-09-13 15:32 | NUR ---
0945 EXTUBATION COMPLETE PATIENT PLACED ON 4L NC
--- NOTE | 2018-09-13 15:35 | NUR ---
1324 MSO4 10MG GIVEN IV FOR COMFORT DR SINGLETARY ROUNDING ON PATIENT
--- NOTE | 2018-09-13 17:50 | NUR ---
PATIENT ARRIVED TO THE FLOOR WITH ICU STAFF, HE OPENED HIS EYES BRIEFLY WHEN SPOKEN TO, AGONAL BREATHING NOTED. O2 VIA NC AT 5 LPM, NO S/S OF PAIN
--- NOTE | 2018-09-13 18:33 | NUR ---
PATIENT RESTING IN BED, AGONAL BREATHING, O2 VIA NC IN PLACE.
--- NOTE | 2018-09-13 19:32 | NUR ---
BEDSIDE SHIFT REPORT, THE PATIENT WAS FOUND TO BE , NO PULSE NOTED, NO BREATH SOUNDS HEARD. DR HARDIN PAGED AT 1933
--- NOTE | 2018-09-13 21:01 | NUR ---
PT FOUND NOT BREATHING AND UNRESPONSIVE AT 1914 DURING BEDSIDE REPORT, [facility] CALLED AT 1954, DR. LAVERNE WARD PRONOUNCED AT 1954, BROTHER TRAN PARRY CALLED AT 2014, HOME [facility] CALLED AT 2044, [facility] WILL BE PICKING UP BODY WITHIN 45 MINUTES TO AN HOUR.
--- NOTE | 2018-09-14 08:52 | MORECARE ---
CASE MANAGEMENT DISCHARGE SUMMARY PATIENT: ALEXANDER ALBRECHT JR UNIT: [id number] ADM DATE: 09/07/18 AGE: 73 : 46 SEX: M ROOM/BED: D.1202 AUTHOR: NEGRA ELENA PHYSICIAN: REFERRING PHYSICIAN: TONNY LAURENT MD DATE OF SERVICE: 09/14/18 Discharge Plan Patient Name: ALEXANDER ALBRECHT Facility: [facility]:[place] : 1945 Planned Disposition: Anticipated Discharge Date: Discharge Date: 09/13/2018 Expected LOS: Initial Reviewer: [email or web address] Initial Review Date: 09/07/2018 Generated: 09/14/18 9:51 am Comments DCP- Discharge Planning Updated by [id number]: Margie Freeman on 09/12/18 3:[address] CM spoke with Cricket Mcgee (identifies himself as a brother) states that he and the patients sister (Danielle) having been talking through [employer]. He states he doesn't have her phone number. They are requesting terminal extubation. CM notified Dr. Ramey of family request and Dr. Ramey came and spoke with Robert. Harley states he is POA but there isn't any paperwork on chart. CM will continue to follow and assist as needed with discharge planning / needs. DCP- Discharge Planning Updated by [id number]: Margie Freeman on 09/09/18 4:[address] PATIENT IS CURRENTLY ON VENT AND NO FAMILY AVAILABLE FOR INTAKE ASSESSMENT. CM HAS NOT BEEN ABLE TO GET INTOUCH WITH CONTACTS. CM WILL CONTINUE TO FOLLOW AND ASSIST NEEDED WITH DISCHARGE PLANNING / NEEDS. DCP- Discharge Planning Updated by [id number]: Margie Freeman on 09/08/18 4:[address] PATIENT IS CURRENTLY ON VENT AND NO FAMILY AVAILABLE FOR INTAKE ASSESSMENT Last DP export: 09/12/18 3:33 p Patient Name: ALEXANDER ALBRECHT Page [id number] at 0852 All edits/amendments must be made on the electronic document DICTATION DATE: 09/14/18850 PAINTER SPRING: JOE 09/14/18850 RPT#: [id number] DC DATE:09/13/18 STATUS: DIS IN [facility] [address] [place] [address] END OF REPORT
== END 2018-09-13 19:45 | DRG 64 ==
LOC: D.ER 07:14 → EDBD 10:25 → D.ICU 10:25 → D.EDHOLD 10:25 → D.ICU 10:54 → D.M3 09-13 16:37
PROVIDERS: Emergency Medicine; Family Medicine; ADMIT Internal Medicine Nephrology; ATTEND Internal Medicine Nephrology
PROC: 5A1955Z Respiratory Ventilation, Greater than 96 Consecutive Hours (ICD-10-PCS; principal; 2018-09-07)
PROC: 0BH17EZ Insertion of Endotracheal Airway into Trachea, Via Natural or Artificial Opening (ICD-10-PCS; 2018-09-07)
DX: I61.0 Nontraumatic intracerebral hemorrhage in hemisphere, subcortical (principal); J96.00 Acute respiratory failure, unspecified whether with hypoxia or hypercapnia; G81.94 Hemiplegia, unspecified affecting left nondominant side; N17.9 Acute kidney failure, unspecified; E87.0 Hyperosmolality and hypernatremia; D50.9 Iron deficiency anemia, unspecified; I10 Essential (primary) hypertension; K72.10 Chronic hepatic failure without coma